=== PATIENT | male | born 1940 | race Caucasian/White ===

== ENCOUNTER 2017-01-22 14:09 | Observation (INO) | payer MEDICARE ==
[2017-01-22 14:58] LABS: Hematocrit 48 % (42-52); Hemoglobin 15.7 g/dl (14.0-18.0); Mean Corpuscular HGB Conc 33 g/dl (31-36); Mean Corpuscular Hemoglobin 30 pg (27-31); Mean Corpuscular Volume 90 fL (80-94); Mean Platelet Volume 10 um3 (7.4-10.4); Red Blood Count 5.29 10^6/ul (4.0-5.4); Red Cell Distribution Width 15 % (10.5-15); White Blood Count 6.7 10^3/ul (3.5-10.8)
--- NOTE | 2017-01-22 15:09 | RAD ---
INDICATION: Chest pain COMPARISON: January 13, 2014 TECHNIQUE: An AP portable view obtained at 1510 hours is submitted. FINDINGS: Bones/Soft Tissues: There are no acute bony findings. Cardiomediastinal: The cardiomediastinal silhouette is normal. Lungs: There are no infiltrates. Pleura: There are no pleural effusions. Other: None IMPRESSION: NO ACTIVE DISEASE.
[2017-01-22 15:12] LABS: Troponin I 0.01 ng/mL (<0.04)
[2017-01-22 15:14] LABS: Albumin 3.8 g/dL (3.2-5.2); BUN/Creatinine Ratio 14.7 (8-20); Calcium 9.3 mg/dL (8.6-10.3); EGFR African American 98.6 (>60); EGFR Non-African American 76.7 (>60); Globulin 3.1 g/dL (2-4); Potassium 3.9 mmol/L (3.5-5.0); Total Protein 6.9 g/dL (6.4-8.9)
[2017-01-22] MEDS ORDERED: Nitroglycerin TAB 0.4 MG* 0.4 MG TAB ONE ×2 (15:56→15:57)
[2017-01-22] MEDS ORDERED: Nitroglycerin TAB 0.4 MG* 0.4 MG TAB SL ONE (15:59)
[2017-01-22] MEDS ORDERED: Omeprazole CAP* 20 MG PO PRN (16:13)
[2017-01-22] MEDS ORDERED: Zolpidem TAB* 10 MG PO PRN (16:13)
[2017-01-22] MEDS ORDERED: Diphenoxylat/Atrop 2.5-0.025M* 1 TAB PO PRN (16:13)
[2017-01-22] MEDS ORDERED: Acetaminophen TAB* 325 MG PO PRN (16:15)
--- NOTE | 2017-01-22 18:33 | ED ---
Kevin Myers Erika, scribed for Beau Lazar MD on 01/22/17 at 1532 . HPI Chest Pain - HPI Summary HPI Summary: Patient is a 76-year-old male presenting to the ED with a CC of intermittent chest pain starting this morning. He reports that he was at a library looking at books when the pain first began. He describes the pain as sharp, stabbing, and a pressure to the mid-sternal chest. 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 Pain does not seem to be brought on by anything, including movement and breathing. Patient notes some mild diaphoresis with symptoms. He denies palpitations, SOB, nausea, and abdominal pain. Pt was given 324 mg ASA en route. Patient denies similar symptoms in the past, and denies known history of PVCs. Hx HTN, celiac disease, GERD. PSHx cholecystectomy, prostatectomy s/p prostate cancer. Denies Hx CAD, asthma. Patient is followed by Dr. Dominguez. 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 Negative: Shortness of Breath, Nausea, Palpitations, Abdominal Pain - Additional Pertinent History Primary Care Physician: [id number] - Allergy/Home Medications Allergies/Adverse Reactions: Allergies Allergy/AdvReac Type Severity Reaction Status Date / Time Fenoprofen [From Nalfon] Allergy Intermediate Diarrhea Verified 01/22/17 14:58 Levofloxacin [From Levaquin] Allergy Intermediate Rash Verified 01/22/17 14:58 Penicillins Allergy Intermediate Hives Verified 01/22/17 14:58 ivp dye Allergy Severe Rash And Uncoded 01/22/17 14:58 Itching Home Medications: Home Medications amLODIPine TAB* [Norvasc 5 mg TAB*] 2.5 mg PO DAILY 01/22/17 [History Confirmed 01/22/17] PMH/Surg Hx/FS Hx/Imm Hx Endocrine/Hematology History: Denies: Hx Diabetes Cardiovascular History: Reports: Hx Angina, Hx Hypertension, Hx Rheumatic Fever - childhood Denies: Hx Coronary Artery Disease, Hx Hypercholesterolemia, Hx Myocardial Infarction, Hx Valvular Heart Disease Respiratory History: Reports: Hx Pneumonia - 1997 Denies: Hx Asthma, Hx Chronic Obstructive Pulmonary Disease (COPD) GI History: Reports: Hx Gastroesophageal Reflux Disease, Hx Hiatal Hernia History: Reports: Other Problems/Disorders - radical prostectomy 2001, Prostate Cx Musculoskeletal History: Reports: Hx Arthritis - osteo Sensory History: Reports: Hx Contacts or Glasses, Hx Hearing Aid - right side only Opthamlomology History: Reports: Hx Contacts or Glasses - Cancer History Cancer Type, Location and Year: Squamous cell 2010, 2011, Prostate Cx 2010, 2001 - Surgical History Surgery Procedure, Year, and Place: Repair trimalleolar Fx 1997, Radical Prostectomy 2001, Tonsilectomy 194, [place] 1979, Bladder polypectomy, R knee arthroplasty 2007, Mohs Sx 2011, Hx Anesthesia Reactions: No - Immunization History Date of Tetanus Vaccine: 04/21 Date of Influenza Vaccine: 06/26 Infectious Disease History: Denies: Traveled Outside the [place] in Last 30 Days - Family History Known Family History: Positive: Cardiac Disease Negative: Diabetes - Social History Occupation: Retired Lives: With Family Alcohol Use: Rare Substance Use Type: Reports: None Hx Tobacco Use: Yes Smoking Status (MU): Former Smoker Amount Used/How Often: 1/2 pack a day Length of Time of Smoking/Using Tobacco: 10 years Have You Smoked in the Last Year: No Review of Systems Positive: Skin Diaphoresis Positive: Chest Pain. Negative: Palpitations Negative: Shortness Of Breath Negative: Abdominal Pain, Nausea All Other Systems Reviewed And Are Negative: Yes Physical Exam Triage Information Reviewed: Yes Vital Signs On Initial Exam: Initial Vitals Temp Pulse Resp BP Pulse Ox 97.3 F 64 14 146/92 98 01/22/17 14:10 01/22/17 14:10 01/22/17 14:10 01/22/17 14:10 01/22/17 14:10 Vital Signs Reviewed: Yes Appearance: Positive: Well-Appearing, No Pain Distress, Obese Skin: Positive: Warm, Skin Color Reflects Adequate Perfusion, Dry Head/Face: Positive: Normal Head/Face Inspection Eyes: Positive: Normal ENT: Positive: Normal ENT inspection Neck: Positive: Supple, Nontender Respiratory/Lung Sounds: Positive: Clear to Auscultation, Breath Sounds Present Cardiovascular: Positive: Other - heart rate had extra beats with pauses Abdomen Description: Positive: Nontender, Soft Bowel Sounds: Positive: Present Musculoskeletal: Positive: Normal Neurological: Positive: Normal Psychiatric: Positive: Affect/Mood Appropriate Diagnostics - Vital Signs Vital Signs Temp Pulse Resp BP Pulse Ox 01/22/17 14:10 97.3 F 64 14 146/92 98 - Laboratory Lab Results: Lab Results 01/22/17 01/22/17 01/22/17 Range/Units 14:26 14:26 14:26 WBC 6.7 (3.5-10.8) 10^3/ul RBC 5.29 (4.0-5.4) 10^6/ul Hgb 15.7 (14.0-18.0) g/dl Hct 48 (42-52) % MCV 90 (80-94) fL MCH 30 (27-31) pg MCHC 33 (31-36) g/dl RDW 15 (10.5-15) % Plt Count 204 (150-450) 10^3/ul MPV 10 (7.4-10.4) um3 Neut % (Auto) 70.3 (38-83) % Lymph % (Auto) 20.9 L (25-47) % [place] % (Auto) 7.3 (1-9) % Eos % (Auto) 0.9 (0-6) % Baso % (Auto) 0.6 (0-2) % Absolute Neuts (auto) 4.7 (1.5-7.7) 10^3/ul Absolute Lymphs (auto) 1.4 (1.0-4.8) 10^3/ul Absolute Monos (auto) 0.5 (0-0.8) 10^3/ul Absolute Eos (auto) 0.1 (0-0.6) 10^3/ul Absolute Basos (auto) 0 (0-0.2) 10^3/ul Absolute Nucleated RBC 0.01 10^3/ul Nucleated RBC % 0.1 Sodium 138 (133-145) mmol/L Potassium 3.9 (3.5-5.0) mmol/L Chloride 106 (101-111) mmol/L Carbon Dioxide 26 (22-32) mmol/L Anion Gap 6 (2-11) mmol/L BUN 14 (6-24) mg/dL Creatinine 0.95 (0.67-1.17) mg/dL Est GFR ( Amer) 98.6 (>60) Est GFR (Non-Af Amer) 76.7 (>60) BUN/Creatinine Ratio 14.7 (8-20) Glucose 104 H (70-100) mg/dL Lactic Acid 1.9 (0.5-2.0) mmol/L Calcium 9.3 (8.6-10.3) mg/dL Total Bilirubin 1.00 (0.2-1.0) mg/dL AST 32 (13-39) U/L ALT 27 (7-52) U/L Alkaline Phosphatase 46 (34-104) U/L Troponin I 0.01 (<0.04) ng/mL Total Protein 6.9 (6.4-8.9) g/dL Albumin 3.8 (3.2-5.2) g/dL Globulin 3.1 (2-4) g/dL Albumin/Globulin Ratio 1.2 (1-3) Result Diagrams: 01/22/17 14:26 01/22/17 14:26 Lab Statement: Any lab studies that have been ordered have been reviewed, and results considered in the medical decision making process. - Radiology CXR Radiology Interpretation Completed By: Radiologist - IMPRESSION: NO ACTIVE DISEASE. - EKG 14:20 Cardiac Rate: NL - at 68 bpm EKG Rhythm: Sinus Rhythm Ectopy: PVCs 14:21 Cardiac Rate: NL - at 68 bpm EKG Rhythm: Sinus Rhythm Ectopy: PVCs 15:59 Cardiac Rate: NL - at 71 bpm EKG Rhythm: Sinus Rhythm Ectopy: PVCs Re-Evaluation - Re-Evaluation First Eval Re-Evaluation Time: 15:30 Comment: Discussed need for admission Chest Pain Course/Dx - Course Course Of Treatment: Mr. Locke presented to the ED with a C/O chest pain that was intermittent all afternoon. His initial troponin was negative as was his ecg but his EDACS is 25 and I think he needs to come in a nd get stressed. His CP is almost completely gone when I see him. - Diagnoses Provider Diagnoses: Chest pain - Provider Notifications Discussed Care Of Patient With: Dr. Ruggiero (hospitalist) at 15:32 - agrees to admit Discharge - Discharge Plan Condition: Stable Disposition: ADMITTED TO [facility] The documentation as recorded by the Kevin fisher Erika accurately reflects the service I personally performed and the decisions made by me, Beau Lazar MD.
[2017-01-22 19:46] LABS: Urine Bilirubin Negative (Negative); Urine Glucose Negative (Negative); Urine Nitrite Negative (Negative)
[2017-01-22] MEDS: Heparin VIAL(*) 5000 UNITS/ML VIAL (FIVE THOUSAND) SUBCUT SCH (21:23)
--- NOTE | 2017-01-23 00:17 | HP ---
HISTORY AND PHYSICAL: DATE OF ADMISSION: 01/22/17 PROVIDER: Adan Ivan NP ATTENDING PHYSICIAN: Coco Julien DO *(report dictated by Adan Ivan NP) PRIMARY CARE PROVIDER: Joaquin Dominguez MD CHIEF COMPLAINT: Chest pain. HISTORY OF PRESENT ILLNESS: Mr. Locke is a 76-year-old male with a past medical history of hypertension, GERD, celiac disease, and distant history of tobacco abuse who presented to the emergency department today with report of acute onset of chest pain starting at 10 a.m. this morning. Mr. Locke reports that he was in the library when he had acute onset of chest pain in his midsternal area radiating to his right chest wall reporting accompanied mild diaphoresis. The patient reports the pain to be sharp, stabbing, and pressure like. He has reported intermittent episodes of chest pain lasting 1 to 2 minutes throughout the day and he came to the emergency department for further evaluation. The patient reports that it seems to happen at rest or with exertion. In the emergency department, he did have an episode of chest pain in which he was given a sublingual nitro and he does state that it mildly subsided. In the emergency department, the patient's initial troponin is 0.01 and EKG showing sinus rhythm with a rate of 68 with no acute ischemic changes noted. The patient denies any accompanying nausea or shortness of breath during these episodes. Denies history of coronary artery disease in the past. The patient denies any recent fevers, chills, or other illnesses and reports that he has been in "fairly good health." No fever, chills, shortness of breath, or cough. Denies any lower extremity swelling or orthopnea. PAST MEDICAL HISTORY: 1. Prostate cancer, status post prostatectomy. 2. History of skin cancer. 3. GERD. 4. Hypertension. 5. Celiac disease. 6. Insomnia. 7. No history of frequent PVCs. PAST SURGICAL HISTORY: 1. Status post right knee arthroplasty. 2. Left total shoulder replacement. 3. Cholecystectomy. 4. Tonsillectomy. 5. Prostatectomy. HOME MEDICATIONS: 1. Amlodipine 2.5 mg p.o. daily. 2. Omeprazole 20 mg p.o. daily p.r.n. 3. Lomotil 1 tab p.o. 4 times a day p.r.n. 4. Ambien 10 mg p.o. at bedtime p.r.n. 5. Valsartan 160 mg p.o. q.a.m. 6. Multivitamin 1 cap p.o. daily. ALLERGIES: FENOPROFEN causes diarrhea. LEVOFLOXACIN causes rash. PENICILLIN causes hives. IVP DYE causes rash and itching. FAMILY HISTORY: The patient's father had a history of congestive heart failure. SOCIAL HISTORY: The patient reports history of tobacco abuse, quitting 35 years ago and smoked for a total of 15 years, 1 pack a day. Rare alcohol use. The patient lives at home with his , Deedee, who is his healthcare proxy. He has no children. REVIEW OF SYSTEMS: A 14-point review of systems was performed. All the pertinent positives and negatives are mentioned in the history of present illness. All the remaining systems are negative. PHYSICAL EXAMINATION GENERAL APPEARANCE: A 76-year-old well-developed male, who appears fairly healthy at his baseline. He is alert and oriented x3. He is sitting up in the emergency department stretcher, in no acute distress. VITAL SIGNS: Temperature 98.1, heart rate 63, respirations 16, O2 sat 100% on room air, and blood pressure 123/72. HEENT: Head is normocephalic, atraumatic. Pupils are reactive to light. Oropharynx is clear. Moist mucous membranes. Good dentition. NECK: Supple. No cervical or supraclavicular lymphadenopathy. RESPIRATORY: Lungs are clear to auscultation bilaterally. Good aeration throughout. No accessory muscle use. CARDIAC: S1, S2. No murmurs, rubs, or gallops appreciated. Trace lower extremity edema noted bilaterally; 1+ DP pulses bilaterally. ABDOMEN: Soft, nontender, and nondistended. Normal bowel sounds positive x4. MUSCULOSKELETAL: Strength is 5/5 throughout. Full range of motion in all extremities. No clubbing or cyanosis is noted. SKIN: Warm, pink, dry. No rashes, lesions, or open wounds noted. NEURO: Grossly intact. Moves all extremities equally. Sensation to lower extremities is intact to light touch. PSYCH: Alert and oriented x3. Appropriate to situation. DIAGNOSTIC STUDIES/LAB DATA: Sodium 138, potassium 3.9, chloride 106, carbon dioxide 26, anion gap 6, BUN 14, creatinine 0.95, glucose 104, lactic acid 1.9, calcium 9.3. Total bilirubin 1.00, AST 32, ALT 27, alkaline phosphatase 46. Troponin 0.01. Total protein 6.9, albumin 3.8. WBC 6.7, RBC 5.29, HGB 15.7, HCT 48, MCV 90, MCH 30, MCHC 33, RDW 15, and platelet count 204. Chest x-ray, impression: "No active disease." EKG sinus rhythm with a rate of 68 with noted ventricular premature complexes. In comparison to prior EKG from 2014 and 2016, there are no acute ischemic changes noted. ASSESSMENT AND PLAN: Mr. Locke is a 76-year-old male with a past medical history of hypertension, distant tobacco abuse, and gastroesophageal reflux disease who presented to the emergency department today with report of acute onset of chest pain. 1. Chest pain: Admit the patient to the hospitalist service for monitoring for acute coronary syndrome. The patient did have an episode of chest pain in the emergency department that was relieved by nitro. Initial troponin is negative at 0.01. Plan to monitor the patient on telemetry, trend troponins with EKGs, and plan for a cardiac nuclear exercise stress test in the morning. The patient did receive an aspirin in the emergency department. We will continue aspirin 81 mg p.o. daily. The patient's MIGUEL A score is 2 placing him at 8% risk. 2. Hypertension: Controlled on his home medications. Continue amlodipine and valsartan. 3. Gastroesophageal reflux disease: Per the patient, he reports that his reflux is well controlled. However, it is possible that his symptoms could be related to gastroesophageal reflux disease symptoms. Continue omeprazole. 4. Celiac disease: Gluten-free diet. 5. DVT prophylaxis: Heparin subcu. 6. Code status: Full code. The patient's is the healthcare proxy. TIME SPENT: Approximately 60 minutes were spent on this admission. ADAN IVAN NP CC: Dr. Dominguez* [id number]/[facility] #: [id number] MARIO
[2017-01-23 04:57] LABS: Hematocrit 43 % (42-52); Hemoglobin 14.4 g/dl (14.0-18.0); Mean Corpuscular HGB Conc 34 g/dl (31-36); Mean Corpuscular Hemoglobin 30 pg (27-31); Mean Corpuscular Volume 90 fL (80-94); Mean Platelet Volume 9 um3 (7.4-10.4); Red Blood Count 4.78 10^6/ul (4.0-5.4); Red Cell Distribution Width 15 % (10.5-15); White Blood Count 6.7 10^3/ul (3.5-10.8)
[2017-01-23] MEDS: Heparin VIAL(*) 5000 UNITS/ML VIAL (FIVE THOUSAND) SUBCUT SCH ×2 (05:08→14:20)
[2017-01-23 05:10] LABS: BUN/Creatinine Ratio 16.7 (8-20); Calcium 8.6 mg/dL (8.6-10.3); EGFR African American 113.7 (>60); EGFR Non-African American 88.4 (>60); Potassium 3.7 mmol/L (3.5-5.0)
[2017-01-23] MEDS ORDERED: Vitamin THERAPEUTIC TAB PO SCH (09:00)
[2017-01-23] MEDS ORDERED: Aspirin Low Dose CHEW TAB* 81 MG PO SCH (09:00)
[2017-01-23] MEDS ORDERED: Valsartan TAB* 160 MG PO SCH (09:00)
[2017-01-23] MEDS ORDERED: amLODIPine TAB* 5 MG PO SCH (09:00)
--- NOTE | 2017-01-23 11:56 | RAD ---
Edited for charges. INDICATION: Chest pain, hypertension. COMPARISON: January 14, 2014 TECHNIQUE: 10.830 mCi of Tc-99m Myoview were administered IV. SPECT images of the heart were obtained. Later on the same day under the direction of Dr. Stokes, an exercise stress test was performed. The patient achieved a peak heart rate of 158 bpm, 111 % of the age- predicted maximum. Subsequently, the patient was given an IV injection of 25.320 mCi Tc- 99m Myoview. SPECT images of the heart were obtained and a gated wall motion study was performed. FINDINGS: Gated wall motion images were obtained at stress and demonstrate wall motion to be within normal limits. The calculated left ventricular ejection fraction is 70 % at stress. Estimated LEFT ventricular end diastolic volume is 62 mL. TID 0.9. Diaphragmatic attenuation noted. Based on review of the attenuation corrected and non corrected images the distribution of radiopharmaceutical within the myocardium on the stress and rest images is within normal limits. No fixed or reversible regions of hypoperfusion evident. IMPRESSION: 1. No evidence for stress induced myocardial ischemia or presence of an infarct. 2. Normal left ventricular wall motion and ejection fraction. ASSESSMENT: LOW RISK Based on imaging criteria from ACC/AHA 2002 Guideline Update for the Management of Patients With Chronic Stable Angina Table 23. Noninvasive Risk Stratification. MTDD
[2017-01-23 13:45] VITALS: BP 128/62
--- NOTE | 2017-01-24 10:12 | TRS ---
DISCHARGE SUMMARY: DATE OF ADMISSION: 01/22/17 DATE OF DISCHARGE: 01/23/17 HOSPITAL STATUS: Observation. PROVIDER: Adan Ivan NP ATTENDING PHYSICIAN: DO Lalo Hickey(report dictated by Adan Ivan NP) PRIMARY CARE PROVIDER: Joaquin Dominguez MD PRIMARY DIAGNOSES: Chest pain, unknown etiology, acute coronary syndrome ruled out. SECONDARY DIAGNOSES: 1. Gastroesophageal reflux disease. 2. Hypertension. 3. Insomnia. 4. History of frequent premature ventricular contractions. 5. Celiac disease. HISTORY OF PRESENT ILLNESS AND HOSPITAL COURSE: Please see history and physical by this author for full admission details, but in summary, this is a 76 -year-old male with a past medical history of hypertension, GERD, celiac disease , and distant history of tobacco abuse who presented to the emergency department on 01/22/17 with report of acute onset of chest pain, starting approximately 10 a.m. yesterday morning. Mr. Locke reports that he was in the library when he had acute onset of chest pain in his midsternal area radiating to his right chest wall with accompanied mild diaphoresis. He reported the pain to be sharp, stabbing, like pressure. He reported intermittent episodes lasting 1 to 2 minutes throughout the day. He reported they would happen at rest and with exertion and nothing made it better or worse. On evaluation in the emergency department, the patient's troponin was 0.01 and his EKG showed sinus rhythm with a rate of 68 with no ventricular premature complexes with no acute ischemic changes noted from prior EKGs. The patient was admitted to the hospitalist service and monitored on telemetry. He had no noted arrhythmias. No further chest pain. He had 4 troponins, all of which were 0.01. The patient's other labs were unremarkable. He underwent a cardiac nuclear exercise stress test this morning, which placed him at low risk showing, 1. "No evidence for stress-induced myocardial ischemia or presence of an infarct. 2. Normal left ventricular wall motion and ejection fraction." The patient has done well throughout his hospitalization with no further episodes of chest pain. The etiology behind his chest pain is unclear. He does report that he did yardwork the day prior to coming in; however, he has no reproducible musculoskeletal pain, but possibly he had some muscle spasms or this was secondary to GERD-like symptoms or esophageal spasms. However, the patient has been chest pain free. He has had a low-risk stress test with negative cardiac enzymes and no EKG changes. The patient is stable for discharge to home. DISCHARGED MEDICATIONS: 1. Amlodipine 2.5 mg p.o. daily. 2. Prilosec 20 mg p.o. daily p.r.n. 3. Lomotil 1 tab p.o. q.i.d. p.r.n. 4. Ambien 10 mg p.o. at bedtime. 5. Valsartan 160 mg p.o. q.a.m. 6. Multivitamin 1 cap p.o. daily. DISCHARGE PLAN: The patient is stable for discharge to home. Next month follow up with Dr. Joaquin Dominguez on 01/28/17 at 11:20 a.m. TIME SPENT: Approximately 60 minutes was spent on this discharge. ADAN IVAN NP CC: Joaquin Dominguez MD* [id number]/[facility] #: [id number] MTDD
== END 2017-01-23 15:41 | disposition home or self-care (01) ==
LOC: ED 14:09 → MEDTELE 15:37 → UNDODISOB 01-23 15:41
PROVIDERS: ADMIT Internal Medicine; ATTEND Hospitalist
DX: R07.9 Chest pain, unspecified (principal); I10 Essential (primary) hypertension; K21.9 Gastro-esophageal reflux disease without esophagitis; K90.0 Celiac disease; G47.00 Insomnia, unspecified; I20.9 Angina pectoris, unspecified; I49.3 Ventricular premature depolarization; Z85.46 Personal history of malignant neoplasm of prostate; Z79.899 Other long term (current) drug therapy; Z87.891 Personal history of nicotine dependence; Z88.0 Allergy status to penicillin; Z88.1 Allergy status to other antibiotic agents; Z88.8 Allergy status to other drugs, medicaments and biological substances
CPT/HCPCS: 36415; 71010; 78452; 80048; 80053; 81003; 83605; 84484; 85025; 93005; 93017; 96372; 99285; A9270-GY; A9502; G0378; J1644

== ENCOUNTER 2017-04-22 14:40 | Emergency (ER) | payer MEDICARE ==
[2017-04-22] MEDS ORDERED: Tetan/Diph/Pertus SYR(Tdap)* 0.5 ML SYR(BOOSTRIX) use SYR IM ONE (15:48)
[2017-04-22 16:11] VITALS: BP 142/75
--- NOTE | 2017-04-22 23:47 | ED ---
Laceration/Wound HPI - HPI Summary HPI Summary: Small 2cm laceration to the right knee with moderate amount of bleeding from pruning efrain 2 hours ago. He attempted to place bandaids without relief of bleeding and applying pressure with no improvement. Denies blood thinners but took motrin this morning. He is otherwise healthy. Last tetanus 8 years ago. He has no other complaints at this time. - History of Current Complaint Stated Complaint: KNEE LACERATION Time Seen by Provider: 04/22/17 14:45 Hx Obtained From: Patient Mechanism of Injury: Sharp/Blunt Trauma Onset/Duration: Sudden Onset Aggravating: Nothing Alleviating: Nothing Timing: Constant Onset Severity: Mild Current Severity: Mild Pain Intensity: 0 Pain Scale Used: 0-10 Numeric Associated Signs & Symptoms: Negative Related Hx: Other - motrin this morning - Additional Pertinent History Primary Care Physician: [id number] - Allergy/Home Medications Allergies/Adverse Reactions: Allergies Allergy/AdvReac Type Severity Reaction Status Date / Time Fenoprofen [From Nalfon] Allergy Intermediate Diarrhea Verified 01/22/17 14:58 Levofloxacin [From Levaquin] Allergy Intermediate Rash Verified 01/22/17 14:58 Penicillins Allergy Intermediate Hives Verified 01/22/17 14:58 ivp dye Allergy Severe Rash And Uncoded 01/22/17 14:58 Itching PMH/Surg Hx/FS Hx/Imm Hx Previously Healthy: Yes Endocrine/Hematology History: Denies: Hx Diabetes Cardiovascular History: Reports: Hx Angina, Hx Hypertension, Hx Rheumatic Fever - childhood Denies: Hx Coronary Artery Disease, Hx Hypercholesterolemia, Hx Myocardial Infarction, Hx Valvular Heart Disease Respiratory History: Reports: Hx Pneumonia - 1997 Denies: Hx Asthma, Hx Chronic Obstructive Pulmonary Disease (COPD) GI History: Reports: Hx Gastroesophageal Reflux Disease, Hx Hiatal Hernia, Other GI Disorders - celiac disease History: Reports: Other Problems/Disorders - radical prostectomy 2001, Prostate Cx Musculoskeletal History: Reports: Hx Arthritis - osteo Sensory History: Reports: Hx Contacts or Glasses, Hx Hearing Aid - right side only Opthamlomology History: Reports: Hx Contacts or Glasses - Cancer History Cancer Type, Location and Year: Squamous cell 2010, 2011, Prostate Cx 2001 - Surgical History Surgery Procedure, Year, and Place: Repair trimalleolar Fx 1997, Radical Prostectomy 2001, Tonsilectomy 194, [place] 1979, Bladder polypectomy, R knee arthroplasty 2008, Mohs Sx 2012, Hx Anesthesia Reactions: No - Immunization History Date of Tetanus Vaccine: 04/21 Date of Influenza Vaccine: 06/26 Hx Pertussis Vaccination: No Immunizations Up to Date: Unable to Obtain/Confirm Infectious Disease History: No Infectious Disease History: Denies: Traveled Outside the [place] in Last 30 Days - Family History Known Family History: Positive: Cardiac Disease, Other - CHF Negative: Diabetes - Social History Occupation: Retired Lives: With Family Alcohol Use: Rare Alcohol Amount: MAYBE 1-2 DRINKS/YEAR Hx Substance Use: No Substance Use Type: Reports: None Hx Tobacco Use: Yes Smoking Status (MU): Former Smoker Amount Used/How Often: 1/2 pack a day Length of Time of Smoking/Using Tobacco: 10 years Have You Smoked in the Last Year: No Review of Systems Constitutional: Negative Eyes: Negative Cardiovascular: Negative Respiratory: Negative Positive: no symptoms reported, see HPI Skin: Negative - 2cm laceration to lateral side of the right knee All Other Systems Reviewed And Are Negative: Yes Physical Exam Triage Information Reviewed: Yes Vital Signs On Initial Exam: Initial Vitals Temp Pulse Resp BP Pulse Ox 97.6 F 104 20 175/158 97 04/22/17 14:41 04/22/17 14:41 04/22/17 14:41 04/22/17 14:41 04/22/17 14:41 Vital Signs Reviewed: Yes Appearance: Positive: Well-Appearing, Well-Nourished Skin: Positive: Warm, Skin Color Reflects Adequate Perfusion - 2cm laceration to lateral side of the right knee Head/Face: Positive: Normal Head/Face Inspection Eyes: Positive: Normal, MICKEY Neck: Positive: Supple, No Lymphadenopathy Respiratory/Lung Sounds: Positive: Clear to Auscultation, Breath Sounds Present Cardiovascular: Positive: Normal, RRR, Pulses are Symmetrical in both Upper and Lower Extremities Musculoskeletal: Positive: Normal, Strength/ROM Intact Neurological: Positive: Speech Normal Psychiatric: Positive: Normal Procedures - Laceration/Wound Repair 1 Location: lower extremity Description: Linear Betadine Prep?: No Laceration/Wound Explored: clean Layer Closure?: No Sterile Dressing Applied?: No Diagnostics - Vital Signs Vital Signs Temp Pulse Resp BP Pulse Ox 04/22/17 16:11 83 16 142/75 97 04/22/17 15:00 97.6 F 104 20 138/83 97 04/22/17 14:41 97.6 F 104 20 175/158 97 - Laboratory Lab Statement: Any lab studies that have been ordered have been reviewed, and results considered in the medical decision making process. Laceration Repair Course/Dx - Course Course Of Treatment: 2cm laceration to lateral side of the right knee. Timeout obtained. Cleansed wound. Irrigated with 20CC's normal saline. Lidocaine without epi as local anesthetic - 1ml. 4-0 non-absorbable prolene. 2 sutures placed using simple interrupted technique. Patient tolerated well. Cleaned and dressed wound with telfa dressing. NV exam WNL. Sutures out in 5 days. Return precautions given. Patient OK with discharge. - Differential Dx Differental Diagnoses: Abrasion, Laceration, Puncture Wound, Tendon Laceration - Clinical Impression Provider Diagnoses: Laceration of knee Discharge - Discharge Plan Condition: Stable Disposition: HOME Patient Education Materials: Care For Your Stitches (ED) Referrals: Joaquin Dominguez MD [Primary Care Provider] - Additional Instructions: Follow up as needed If you develop redness, streaks of red around the wound, swelling, abnormal drainage or you develop a fever - you need to come back to the ED right away. Suture removal in 5-7 days. Continue to keep covered x 24 hours, then leave open to air.
== END 2017-04-22 16:15 | disposition home or self-care (01) ==
LOC: ED 14:40
DX: S81.011A Laceration without foreign body, right knee, initial encounter (principal); W27.8XXA Contact with other nonpowered hand tool, initial encounter; Y92.9 Unspecified place or not applicable; Z23 Encounter for immunization; Z88.0 Allergy status to penicillin; Z88.8 Allergy status to other drugs, medicaments and biological substances; I10 Essential (primary) hypertension
CPT/HCPCS: 90471; 90715; 99282

== ENCOUNTER 2018-07-18 08:17 | Inpatient (IN) | payer MEDICARE ==
--- NOTE | 2018-07-09 17:16 | HP ---
PREOPERATIVE HISTORY AND PHYSICAL: DATE OF ADMISSION: 07/18/18 PROVIDER: Dr. Eliza Aggarwal. * (DICTATED BY SUDHEER WINKLER) CHIEF COMPLAINT: Left knee pain. HISTORY OF PRESENT ILLNESS: Mr. Locke is a 77-year-old gentleman, who has had bilateral knee pain, left greater than right, and has become chronic. He failed conservative treatment with steroid injections, physical therapy, and activity modification. He is interested in surgical intervention for correction of the problem. PAST MEDICAL HISTORY: Hypertension, osteoarthritis, GERD, prostate cancer, skin cancer, and celiac disease. PAST SURGICAL HISTORY: Cholecystectomy, left ankle ORIF, prostate surgery, left shoulder replacement, right knee arthroscopy, and tonsillectomy. He reports no complications with anesthesia with any of the procedures. CURRENT MEDICATIONS: 1. Losartan potassium 100 mg p.o. q. day. 2. Magnesium oxide 400 mg p.o. q. day. 3. Amlodipine besylate 2.5 mg q. day. 4. Lomotil as needed. 5. Multivitamin daily. 6. Aleve 220 mg as needed. 7. Omeprazole 20 mg p.o. every other day. 8. Lactaid as needed. ALLERGIES: NALFON, LEVAQUIN, PENICILLIN, GLUTEN, LACTOSE, and CONTRAST DYE. FAMILY HISTORY: Positive for heart disease, diabetes, and hypertension on the paternal side, rheumatoid arthritis on his mother's side. SOCIAL HISTORY: He lives with his . 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 He denies tobacco or recreational drug use. He drinks 1 to 2 alcoholic beverages per week. He is right-hand dominant. REVIEW OF SYSTEMS: A 14-point review of systems was discussed with the patient. All systems were negative except discussed in the HPI. PHYSICAL EXAMINATION GENERAL: He is a well-developed, well-nourished, pleasant male, in no acute distress at rest. He is alert and oriented x3 with appropriate mood and affect. VITAL SIGNS: The patient is 5 feet 6-1/2 inches, 220 pounds. Blood pressure 138/92, pulse 88, temperature 97.9. HEENT: Normocephalic, atraumatic. Hearing and vision are grossly intact. NECK: His trachea is midline. LUNGS: Clear to auscultation bilaterally. No wheezes, rales, or rhonchi. CARDIOVASCULAR: Regular rate and rhythm. No murmurs, rubs, or gallops appreciated. ABDOMEN: Soft, nondistended, nontender. Normal bowel sounds. EXTREMITIES: Exam of the left lower extremity: Skin is intact. There are no abrasions or open wounds. He has a valgus deformity of 12 degrees. No palpable masses or lymph nodes. He has 5 to 120 degrees of flexion with pain and patellofemoral crepitus. He has tenderness along the MCL, medial joint line and lateral joint line. No varus or valgus instability. There is some mild MCL laxity. There is no edema or varicosities distally. He has full sensation and 5/5 strength. His sensation to light touch is intact. He has 2+ dorsalis pedis pulse. GAIT: He ambulates with an antalgic gait favoring his knee. No obvious balance or coordination deficits. DIAGNOSTIC STUDIES: Radiographs of bilateral knees show severe end-stage osteoarthritis of bilateral knees. Left knee is a valgus knee with bone-on- bone contact, tricompartmental joint space narrowing and osteophyte formation with subchondral sclerosis. IMPRESSION: Left knee osteoarthritis. PLAN: The patient is to undergo left total knee arthroplasty by Dr. Aggarwal on . The risks, benefits, and post-operative course were discussed with the patient at length and he would like to proceed. All of his questions were answered to his full satisfaction. He is understanding to call with any problems or concerns. We will otherwise follow up with the patient postoperatively. SUDHEER WINKLER [id number]/[facility] #: [id number] MARIO
[~2018-07-18 08:17] MED LIST: Acetaminophen IV 1GM/100ML * 1,000 MG/100 ML VIAL IVPB ONE; Buffered Lidocaine 0.9% SYRIN* 5 ML/SYR SYRINGE INTRADERM ONE; Dexamethasone IV* 4 MG/ML 1 ML (4 MG) IV SLOW PU ONE; Gabapentin CAP(*) 300 MG PO ONE; Tranexamic Acid 1,000 MG in NS 0.9% 50 ML* (outpatient use) IV SCH; celeCOXIB CAP* 200 MG PO ONE
[2018-07-18] MEDS ORDERED: celeCOXIB CAP* 100 MG ONE (08:38)
[2018-07-18] MEDS ORDERED: Dexamethasone IV* 4 MG/ML 1 ML (4 MG) ONE (08:38)
[2018-07-18] MEDS ORDERED: Gabapentin CAP(*) 300 MG ONE (08:38)
[2018-07-18] MEDS ORDERED: Buffered Lidocaine 0.9% SYRIN* 5 ML/SYR SYRINGE ONE (08:39)
[2018-07-18] MEDS ORDERED: Clindamycin 900 MG/D5W BAG(*) 900 MG/50 ML BAG IVPB ONE (08:39)
[2018-07-18] MEDS ORDERED: Acetaminophen IV 1GM/100ML * 100 ML ONE (09:09)
[2018-07-18] MEDS ORDERED: ROPIVACAINE 5 MG/ML 30 ML BTL (0.5%) ONE (09:57)
[2018-07-18] MEDS ORDERED: fentaNYL* 50 MCG/ML 2 ML VIAL (100 MCG VIAL) ONE (10:00)
[2018-07-18] MEDS ORDERED: Midazolam* 1 MG/ML 5 ML VIAL (5 MG) ONE (10:00)
[2018-07-18] MEDS ORDERED: DiMENhydriNATE IV* 50 MG/ML VIAL IV PUSH PRN (11:13)
[2018-07-18] MEDS ORDERED: fentaNYL* 50 MCG/ML 2 ML VIAL (100 MCG VIAL) IV PRN (11:13)
[2018-07-18] MEDS ORDERED: HYDROmorphone INJ1* 1 MG/ML SYRINGE IV PRN (11:13)
[2018-07-18] MEDS ORDERED: Naloxone* 0.4 MG/ML 1 ML VIAL IV PRN (11:13)
[2018-07-18] MEDS ORDERED: Ondansetron INJ* 2 MG/ML VIAL IV PRN ×2 (11:13→12:49)
[2018-07-18] MEDS ORDERED: Bupivacaine 0.5% SDV PF* 30ML VIAL ONE ×2 (11:16→11:48)
[2018-07-18] MEDS ORDERED: Ondansetron INJ* 2 MG/ML VIAL ONE (11:16)
[2018-07-18] MEDS ORDERED: Propofol* 10 MG/ML 20 ML BTL IV PUSH ONE (11:47)
[2018-07-18] MEDS ORDERED: Cyclobenzaprine TAB* 10 MG PO PRN (12:49)
[2018-07-18] MEDS ORDERED: Ondansetron TAB* 4 MG PO PRN (12:49)
[2018-07-18] MEDS ORDERED: Morphine VIAL* 4 MG/ML VIAL (1 ml vial) IV PRN (12:49)
[2018-07-18] MEDS ORDERED: oxyCODONE/Acetamin 5/325 MG* TAB PO PRN ×2 (12:49)
[2018-07-18] MEDS ORDERED: Polyethylene Glycol 3350* 17 GM PACKET PO PRN (12:49)
[2018-07-18] MEDS ORDERED: diPHENhydraMINE IV* 50 MG/ML 1 ml VIAL (BENADRYL) IV PRN (12:49)
[2018-07-18] MEDS ORDERED: Magnesium Hydroxide LIQ* 30 ML UDC PO PRN (12:49)
[2018-07-18] MEDS ORDERED: Bisacodyl SUPP* 10 MG SUPP PR PRN (12:49)
[2018-07-18] MEDS ORDERED: traMADol TAB* 50 MG PO PRN (12:49)
[2018-07-18] MEDS ORDERED: Zolpidem TAB* 10 MG PO PRN (12:56)
[2018-07-18] MEDS ORDERED: Acetaminophen TAB* 325 MG PO SCH (13:00)
[2018-07-18] MEDS ORDERED: Morphine VIAL* 10 MG/ML 1 ML VIAL ONE ×2 (13:18→15:22)
--- NOTE | 2018-07-18 13:51 | RAD ---
Indication: Postop after LEFT total knee replacement. Comparison: May 12, 2018 Technique: LEFT knee: AP and crosstable lateral views. Report: Total knee prosthesis in place with normal alignment. Negative for periprosthetic fracture. Drain in place at the superior joint recess. Anterior soft tissue edema and subcutaneous emphysema. IMPRESSION: #. Unremarkable immediate postop appearance following LEFT total knee replacement.
[2018-07-18] MEDS ORDERED: Warfarin TAB(*) 6 MG PO ONE (17:00)
[2018-07-18] MEDS: Clindamycin 600 MG IVPREMIX(* 600 MG/50 ML SDV IV SCH (18:19)
[2018-07-18] MEDS: Acetaminophen TAB* 325 MG PO SCH (19:50)
[2018-07-18] MEDS: Magnesium Hydroxide LIQ* 30 ML UDC PO SCH (19:50)
[2018-07-18] MEDS: Docusate CAP* 100 MG PO SCH (19:51)
--- NOTE | 2018-07-18 23:27 | CONS ---
CC: Dr. Joaquin Dominguez; Dr. Eliza Aggarwal CONSULTATION REPORT: DATE OF CONSULT: 07/18/18 PRIMARY CARE PROVIDER: Dr. Joaquin Dominguez. ATTENDING PHYSICIAN: Dr. Coco Julien (dictated by Ce Boo NP). REASON FOR CONSULT: Co-medical management of patient with a history of hypertension, osteoarthritis, GERD, prostate cancer, celiac disease, and lactose intolerance. HISTORY OF PRESENT ILLNESS: Mr. Locke is a 77-year-old male with a past medical history significant for hypertension, osteoarthritis, GERD, prostate cancer, celiac disease with lactose intolerance, who presented to the hospital for an elective left total knee arthroplasty with Dr. Eliza Aggarwal. The patient states that prior to his procedure today, he has been in his usual state of health. He denies any fever, chills, chest pain, shortness of breath, nausea, vomiting, or diarrhea. Postoperatively, he states he is feeling well, but is starting to develop left knee pain. He is noted to be slightly hypertensive today, he states he did not take his antihypertensive medications today. He also reports his primary care provider has been following along for hypertension. Hospitalists were asked to assist with co-medical management of this patient during his hospitalization. PAST MEDICAL HISTORY: 1. Hypertension. 2. Osteoarthritis. 3. GERD. 4. Prostate cancer. 5. Skin cancer. 6. Celiac disease. 7. Lactose intolerance. PAST SURGICAL HISTORY: 1. Status post cholecystectomy. 2. Status post left ankle ORIF. 3 Status post prostatectomy. 4. Status post left shoulder replacement. 5. Status post right total knee arthroscopy. 6. Status post tonsillectomy. HOME MEDICATIONS: Include: 1. Losartan 100 mg oral daily. 2. Magnesium oxide 400 mg oral daily. 3. Amlodipine 2.5 mg oral daily. 4. Lomotil 2.5/0.025 mg 1 tablet oral 4 times daily as needed for loose stools. 5. Multivitamin 1 tablet oral daily. 6. Aleve 220 mg oral daily as needed for pain. 7. Omeprazole 20 mg oral every other day. 8. Lactaid 1 tablet oral daily as needed prior to meal for lactose intolerance. ALLERGIES: NALFON, LEVAQUIN, PENICILLIN, GLUTEN, LACTOSE, and CONTRAST DYE. FAMILY HISTORY: The patient's father with a history of congestive heart failure , brother with a history of diabetes mellitus and heart failure, second brother with a history of congestive heart failure and Alzheimer's dementia. A maternal grandfather with a history of coronary artery disease. SOCIAL HISTORY: He lives with his . 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 He denies tobacco or recreational drug use. He drinks 1 to 2 alcoholic beverages a week. His , Christine Locke, will be his surrogate decision maker in the event he is unable to make decisions for himself. REVIEW OF SYSTEMS: I performed an 11-point review of systems. All the pertinent positives and negatives are mentioned in the history of present illness, the remaining review of systems is negative. PHYSICAL EXAM: Vital Signs: Temperature 96.9, heart rate 64, respiratory rate 14, O2 sat 99% on 2 L via nasal cannula, blood pressure 142/84. General Appearance: He is alert, pleasant, appears to be in no acute distress. HEENT: Normocephalic, atraumatic. Pupils are equal and reactive to light. Extraocular movements are intact. Respiratory: There are no accessory muscle use. Lungs are clear to auscultation bilaterally. Cardiovascular: Regular rate and rhythm. S1, S2 present. There are no murmurs, rubs, or gallops heard. Abdomen: Soft, nontender, nondistended. Bowel sounds present x4. Extremities: No lower extremity edema. DP and PT pulses are 2+ and symmetric. Musculoskeletal: There is no clubbing or cyanosis noted. The patient exhibits good strength in all extremities. Neurological: He is alert and oriented x4. Cranial nerves II through XII are grossly intact. Psychologically, he is calm and cooperative. Skin: There are no rashes or abnormalities seen. He has a dressing to his left knee that is clean, dry, and intact. LABORATORY DATA: Preoperative labs from 07/09/18: Sodium 138, potassium 4.5, chloride 106, CO2 27, BUN 16, creatinine 0.86, glucose 88. White blood cell count 5.4, hemoglobin 15.0, hematocrit 45, platelet count 220. IMPRESSION: Mr. Locke is a 77-year-old male with past medical history significant for hypertension, osteoarthritis, GERD, prostate cancer, and celiac disease, who presented to the hospital today for an elective left total knee arthroplasty with Dr. Eliza Aggarwal. The hospitalists will assist with co- medical management of this patient during his hospitalization. ASSESSMENT/PLAN: 1. Osteoarthritis. Status post left total knee arthroplasty, postop day. Management will be per Orthopedic Surgery. We will trend his H and H. He will have a urinary catheter in place until tomorrow morning. He will have PT/OT eval, weightbearing as tolerated. 2. Hypertension. The patient has been slightly hypertensive with systolic blood pressures in the 130s to 140s. He did not take his losartan or amlodipine today. We will follow his blood pressures. If he continues to be hypertensive, his medication should be adjusted or deferred to his primary care provider to adjust after discharge. 3. Gastroesophageal reflux disease. He will be continued on his home omeprazole. 4. History of prostate and skin cancer. He should continue to follow with his primary care provider. 5. Celiac disease. He should continue to follow with his PCP, be on a gluten- free diet. 6. Fluids, electrolytes, and nutrition. Again, he has celiac and should be on a gluten-free diet. 7. Code status. Full code. 8. DVT prophylaxis. He will be Lovenox bridged to warfarin per Orthopedic Surgery. 9. Disposition. Per Orthopedic Surgery. TIME SPENT: Time for this consultation was approximately 50 minutes, greater than half of that was spent with the patient discussing medications, past medical history, the events leading up to his arrival today, and performing a physical examination. Reviewed by ALLI LOPES 07/19/18 [id number]/[facility] #: [id number] MARIO
[2018-07-19] MEDS: Clindamycin 600 MG IVPREMIX(* 600 MG/50 ML SDV IV SCH ×2 (02:04→09:51)
[2018-07-19] MEDS: oxyCODONE TAB* 5 MG TAB PO PRN (04:00)
[2018-07-19] MEDS: Acetaminophen TAB* 325 MG PO SCH ×3 (04:00→19:44)
[2018-07-19 05:35] LABS: Hematocrit 38 % (42-52); Hemoglobin 12.6 g/dl (14.0-18.0); Platelet Count 185 10^3/ul (150-450)
[2018-07-19 05:44] LABS: INR 1.22 (0.77-1.02)
[2018-07-19 06:00] LABS: EGFR Non-African American 90.6 (>60)
[2018-07-19] MEDS: Losartan TAB* 25 MG PO SCH (07:11)
[2018-07-19] MEDS: amLODIPine TAB* 5 MG PO SCH (07:11)
[2018-07-19] MEDS: Docusate CAP* 100 MG PO SCH ×2 (07:11→19:44)
[2018-07-19] MEDS: Magnesium Hydroxide LIQ* 30 ML UDC PO SCH ×2 (07:14→19:26)
--- NOTE | 2018-07-19 08:53 | PN ---
Progress Note - Progress Note Date of Service: 07/19/18 SOAP: Subjective: Pt. is alert, reports pain is well controlled. Would like to go home tomorrow 07/20. Objective: Vital Signs: Temp Pulse Resp BP Pulse Ox 97.5 F 58 16 131/61 97 07/19/18 04:11 07/19/18 04:11 07/19/18 06:11 07/19/18 04:11 07/19/18 04:11 Laboratory Results - last 24 hr 07/19/18 07/19/18 07/19/18 05:02 05:02 05:02 Hgb 12.6 L Hct 38 L Plt Count 185 MPV 9.0 INR (Anticoag Therapy) 1.22 H Sodium 137 Potassium 4.5 Chloride 104 Carbon Dioxide 30 Anion Gap 3 BUN 18 Creatinine 0.82 Est GFR ( Amer) 109.7 Est GFR (Non-Af Amer) 90.6 BUN/Creatinine Ratio 22.0 H Glucose 115 H Calcium 8.3 L LLE - drain removed, tip intact. 300 cc ss drainage. dressing c/d/i. distally nvi. Assessment: 77 yo M pod 1 s/p LTKA Plan: wbat pt/ot lovenox and coumadin plan d/c to home with vns 07/20
[2018-07-19] MEDS ORDERED: Enoxaparin(*) 40 MG/0.4 ML SYR SUBCUT SCH (12:00)
--- NOTE | 2018-07-19 13:13 | PN ---
Subjective Date of Service: 07/19/18 Interval History: Patient seen and examined at bedside. Denies fever, chills, shortness of breath , chest discomfort, N/V/D. Pt states that his pain is well controlled. He has been up and ambulated with physical therapy. Family History: Unchanged from Admission Social History: Unchanged from Admission Past Medical History: Unchanged from Admission Objective Active Medications: Acetaminophen (Tylenol Tab*) 975 mg PO 0400,1200,2000 FANY Amlodipine Besylate (Norvasc Tab*) 2.5 mg PO QAM FANY Bisacodyl (Dulcolax Supp*) 10 mg WA DAILY PRN Reason: constipation Cyclobenzaprine HCl (Flexeril Tab*) 10 mg PO TID PRN Reason: SPASMS Diphenhydramine HCl (Benadryl Iv*) 12.5 mg IV Q6H PRN Reason: PRURITIS Docusate Sodium (Colace Cap*) 100 mg PO BID FANY Enoxaparin Sodium (Lovenox(*)) 40 mg SUBCUT Q24H FANY Lactated Ringer's (Lactated Ringers 1000 Ml Bag*) 1,000 mls @ 125 mls/hr IV PER RATE FANY Lactated Ringer's (Lactated Ringers 1000 Ml Bag*) 1,000 mls @ 100 mls/hr IV PER RATE FANY Lactulose (Lactulose*) 30 ml PO Q6H PRN Reason: constipation Losartan Potassium (Cozaar Tab*) 100 mg PO QAM FANY Magnesium Hydroxide (Milk Of Magnesia Liq*) 30 ml PO BID FANY Magnesium Hydroxide (Milk Of Magnesia Liq*) 30 ml PO Q6H PRN Reason: constipation Morphine Sulfate (Morphine Vial*) 2 mg IV Q2H PRN Reason: PAIN - SEVERE Omeprazole (Prilosec Cap*) 20 mg PO EVERY OTHER DAY@0730 FANY Ondansetron HCl (Zofran Inj*) 4 mg IV Q6H PRN Reason: nausea Ondansetron HCl (Zofran Tab*) 4 mg PO Q6H PRN Reason: NAUSEA Oxycodone HCl (Roxycodone Tab*) 10 mg PO Q4H PRN Reason: SEVERE PAIN Oxycodone/Acetaminophen (Percocet 5/325 Tab*) 1 tab PO Q4H PRN Reason: PAIN Oxycodone/Acetaminophen (Percocet 5/325 Tab*) 2 tab PO Q4H PRN Reason: PAIN Polyethylene Glycol/Electrolytes (Miralax*) 17 gm PO DAILY PRN Reason: Constipation Tramadol HCl (Ultram*) 50 mg PO Q6H PRN Reason: PAIN Warfarin Sodium (Coumadin Tab(*)) 6 mg PO ONCE@1700 ONE; Protocol Stop: 07/19/18 17:01 Zolpidem Tartrate (Ambien Tab*) 10 mg PO BEDTIME PRN Reason: INSOMNIA Vital Signs - 8 hr 07/19/18 07/19/18 07/19/18 06:11 07:11 08:00 Temperature 98.0 F Pulse Rate 74 Respiratory 16 16 16 Rate Blood Pressure 120/61 (mmHg) O2 Sat by Pulse 95 95 Oximetry Oxygen Devices in Use Now: None Appearance: NAD, sitting up on the side of the bed Ears/Nose/Mouth/Throat: Mucous Membranes Moist Respiratory: Symmetrical Chest Expansion and Respiratory Effort, Clear to Auscultation Cardiovascular: NL Sounds; No Murmurs; No JVD, RRR Extremities: - - Trace left LE edema Skin: No Rash or Ulcers, - - Dressing to left knee cleam, dry and intact Neurological: Alert and Oriented x 3, NL Muscle Strength and Tone Lines/Tubes/Other Access: Clean, Dry and Intact Peripheral IV - site benign Nutrition: Taking PO's Result Diagrams: 07/19/18 05:02 07/19/18 05:02 Assess/Plan/Problems-Billing Assessment: Ms. Locke is a 77 yo male with PMH significant for HTN, osteoarthritis, GERD , prostate CA and celiac disease who presented to the hospital for an elective left total knee arthroplasy. - Patient Problems (1) Status post total left knee replacement Code(s): Z96.652 - PRESENCE OF LEFT ARTIFICIAL KNEE JOINT SNOMED Code(s): 7356279829527 Comment: - POD #1, management per orthopedics - HH stable - Continue PT, pain management and bowel regimen (2) Benign essential hypertension Code(s): I10 - ESSENTIAL (PRIMARY) HYPERTENSION SNOMED Code(s): 5155078 Comment: - Normotensive, SBP 110-130's - Continue losartan and amlodipine (3) GERD (gastroesophageal reflux disease) Code(s): K21.9 - GASTRO-ESOPHAGEAL REFLUX DISEASE WITHOUT ESOPHAGITIS SNOMED Code(s): 480043979 Comment: - Continue omeprazole (4) Celiac disease Code(s): K90.0 - CELIAC DISEASE SNOMED Code(s): 001407183 (5) DVT prophylaxis Code(s): RIN8372 - SNOMED Code(s): 107482711 Comment: - Lovenox bridge to warfarin (6) Patient is full code Code(s): Z78.9 - OTHER SPECIFIED HEALTH STATUS SNOMED Code(s): 431703797 Status and Disposition: Inpatient. Disposition per Orthopedics.
--- NOTE | 2018-07-19 14:06 | OP ---
OPERATIVE NOTE: DATE OF OPERATION: DATE OF : 36 SURGEON: Eliza Aggarwal MD STOCK HANDLER FLOORPERSON: SUDHEER Brown Ms. did help throughout the procedure with preparation of the leg, wound retraction, and man ipulation of the knee and wound closure. ANESTHESIOLOGIST: Dr. Fletcher. ANESTHESIA: Spinal. PRE-OP DIAGNOSIS: Severe end-stage degenerative osteoarthritis of the left knee joint. POST-OP DIAGNOSIS: Severe end-stage degenerative osteoarthritis of the left knee joint. OPERATIVE PROCEDURE: Left total knee arthroplasty. TOURNIQUET TIME: 45 minutes. COMPLICATIONS: None. ESTIMATED BLOOD LOSS: 300 cc. SPECIMEN: Bone and cartilage from the left knee joint, sent to Pathology. HARDWARE USED: This is cemented [employer] total knee arthroplasty hardware. Two packages of S implex bone cement. For the femur, a left size 7 posterior stabilized Legion femoral component. For the tibia, a size 6 left Suzanne II tibial baseplate. For the insert, a 9-mm posterior stabilized a rticular insert size 5/6; and for the patella, a 38 mm 3-peg all-poly patella. BRIEF HISTORY/INDICATIONS: Mr. Locke is a 77-year-old gentleman with years of increasingly severe left knee pain and valgus deformity. He failed conservative treatment with anti-inflammatories, issa n medications, intra-articular injections, and physical therapy. Due to continued pain and decreased quality of life, he elected to undergo left total knee arthroplasty. Informed consent was obtained from the patient. He understood the risks of surgery included but were not limited to bleeding, infe ction, damage to nearby structures, continued pain, need for further surgery, intraoperative fracture , nerve palsy, hardware failure or loosening, knee stiffness, loss of motion, stroke, heart attack, b lood clot, and . He wished to proceed. INTRAOPERATIVE FINDINGS: Intraoperatively, the patient is noted to have a preop valgus deformity of 10 degrees and flexion contracture of 15 degrees. These were both corrected to anatomic and by the e nd of the case, noted a complete thickness loss of cartilage in the lateral and patellofemoral compar tment. DESCRIPTION OF PROCEDURE: Mr. Locke was identified in the preanesthesia unit. His left lower extr emity was marked as the correct operative side. Informed consent was signed and placed in the chart. The patient was taken to the operating room and placed under spinal anesthesia. A Ponce catheter w as placed. Tourniquet was placed on the left thigh. Left lower extremity was prepped and draped in the usual sterile fashion. Preop time-out was made to correctly identify the patient's side and site . Appropriate perioperative antibiotics were given within 1 hour of incision. Tourniquet was inflated and total tourniquet time for this procedure was 45 minutes. A midline incis ion was made with a 10-blade and carried down sharply to the extensor mechanism. A new 10-blade was used to make a standard medial parapatellar arthrotomy. The patella was subluxed laterally. Electro cautery was used to subperiosteally elevate soft tissue off the superomedial tibia to the mid sagitta l plane. Knee was flexed up. The anterior horn of the lateral meniscus and ACL were sharply release d. A drill was used to enter the distal femur. Intramedullary distal femoral cutting guide was pinne d on the distal femur. Oscillating saw was used to make the distal femoral cut. External rotation gu vandana was placed on the distal femur. Distal femur was sized to a size 7. Size 7 multi- cutting jig w as pinned on the distal femur. Oscillating saw was used to make the appropriate 4 chamfer cuts. The PCL was completely released. The tibia was subluxed anteriorly. Extramedullary tibial cutting gu vandana was pinned on the proximal tibia. Oscillating saw was used to make the proximal tibial cut perpe ndicular to the mechanical access of the tibia. The bone was carefully removed. The knee was ayala t out into full extension. A spacer block had excellent fit with the knee in full extension. Medial and lateral ligaments were well balanced. Flexion and extension gaps were well balanced. The knee w as flexed up. Lamina fur coat sewer was placed both medially and laterally. Any remaining meniscus was ca refully removed using electrocautery. Curved osteotome was used to remove any posterior osteophytes. Tibial tray and drop guille were placed and once again confirmed a satisfactory tibial cut. A left size 7 femoral trial was impacted onto the distal femur and had excellent fit. The box for e posterior stabilized implant was prepared using a reamer and box-cut osteotome. A size 6 tibial tr ay trial with a 9-mm insert trial was placed and the knee was taken through a range of motion. The k nee had full extension to 130 degrees of flexion with satisfactory patellofemoral tracking. The nickerson lla was everted. Oscillating saw was used to remove 9 mm of patellar bone and cartilage. The patella was sized to a size 38. Three peg holes were drilled through the size 38 patella. A 38 patella tri al was placed and the knee was taken through a range of motion. There was satisfactory patellofemora l tracking. All trials were carefully removed. The tibia was subluxed anteriorly and sized to a siz e 6. Proximal tibia was prepared using a size 6 keel punch. All bony cut surfaces were copiously irrigated with sterile saline and dried. Final implants were kavitha ented into place starting with the tibia followed by the femur and last the patella. The 9-mm insert trial was placed and the knee was brought out into full extension. Tourniquet was turned down at 45 minutes. Electrocautery was used to obtain meticulous hemostasis. The knee was copiously irrigated with sterile saline. Once the cement fully cured, the insert trial was removed. Any excess cement w as removed from around the capsule and hardware. Final insert chosen was a 9-mm posterior stabilized articular insert size 5/6. This was locked into position on the tibial tray. Stability of the insert was checked and rechecked and noted to be stable. The knee was once again copiously irrigated with sterile saline. The extensor mechanism was closed o marry a medium Hemovac drain using interrupted #1 Vicryl. The rest of the incision was closed in a lay ered fashion using 0 and 2-0 Vicryl. Skin was closed using running 3-0 nylon suture. Sterile Xerofo rm, 4x4s, and Webril were used to cover the incision. Oliver wrap and cold pack were placed over this. The patient's anesthesia was reversed without difficulty. He was taken to the PACU in stable conditi on. Intended weightbearing will be weightbearing as tolerated. Intended DVT prophylaxis will be Coum connor with a Lovenox bridge. [id number]/[facility] #: [id number]
[2018-07-19] MEDS ORDERED: Warfarin TAB(*) 6 MG PO ONE (17:00)
[2018-07-20] MEDS: Acetaminophen TAB* 325 MG PO SCH (03:40)
[2018-07-20 05:47] LABS: Hematocrit 36 % (42-52); Hemoglobin 12.2 g/dl (14.0-18.0); Platelet Count 175 10^3/ul (150-450)
[2018-07-20 05:53] LABS: INR 2.3 (0.77-1.02)
[2018-07-20] MEDS ORDERED: Omeprazole CAP* 20 MG PO SCH (07:30)
[2018-07-20] MEDS: Magnesium Hydroxide LIQ* 30 ML UDC PO SCH (08:32)
[2018-07-20] MEDS: Docusate CAP* 100 MG PO SCH (08:32)
[2018-07-20] MEDS: oxyCODONE TAB* 5 MG TAB PO PRN (08:32)
[2018-07-20] MEDS: Losartan TAB* 25 MG PO SCH (08:32)
[2018-07-20] MEDS: amLODIPine TAB* 5 MG PO SCH (08:32)
--- NOTE | 2018-07-20 08:50 | PN ---
Progress Note - Progress Note Date of Service: 07/20/18 SOAP: Subjective: [Pt. is alert, reports pain is well controlled. Feels ready to go home. States he is doing well with PT. Denies any chest pain or sob. Objective: Vital Signs Temp 98.1 F 07/20/18 03:37 Pulse 107 07/20/18 03:37 Resp 18 07/20/18 08:32 BP 158/91 07/20/18 03:37 Pulse Ox 98 07/20/18 03:37 Intake & Output 07/19/18 07/20/18 07/20/18 18:59 06:59 18:59 Intake Total 1120 700 Output Total 750 Balance 1120 -50 Intake: Oral 1120 700 Output: Urine 750 Other: Estimated Void Large Medium Date of Last Bowel 06/20/18 Movement # Bowel Movements 1 Estimated Stool Amount Medium # Voids 1 1 General: A&Ox3, NAD LLE - Dressing changed, incision is c/d/i without drainage or purulence. +df/pf , calf is soft and non tender. distally nvi. 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
[2018-07-20 10:20] VITALS: BP 143/75
--- NOTE | 2018-07-21 15:40 | DS ---
DISCHARGE SUMMARY: DATE OF ADMISSION: 07/18/18 DATE OF DISCHARGE: 07/20/18 PROVIDER: Dr. Eliza Aggarwal.* (DICTATED BY SUDHEER MYERS) ADMITTING DIAGNOSIS: Left knee osteoarthritis. CONSULTATIONS: PT, OT, and Hospitalist Medicine. HISTORY OF PRESENT ILLNESS: Mr. Locke is a 77-year-old gentleman who has had bilateral knee pain, left greater than right and has become chronic. He has failed conservative treatment with steroid injections, physical therapy, and activity modification and he wanted to undergo a left total knee arthroplasty, which was performed by Dr. Eliza Aggarwal on 07/18/18. HOSPITAL COURSE: The patient was admitted to [facility] on 07/18/18 and underwent a left total knee arthroplasty with no complications. The patient recovered briefly in the postanesthesia care unit and was then transferred to the short-stay surgical unit in stable condition. On postop day #1, the patient's H and H were 12.6 and 38. INR was 1.22 after 6 mg of Coumadin the night before. Dressing was clean, dry, and intact. Left lower extremity was neurovascularly intact. He demonstrated dorsiflexion, plantarflexion, and good strength. Patient was able to get out of bed with physical therapy. Pain was well controlled. On postop day #2, the urinary catheter was discontinued and the patient was able to void without difficulty. Incision was found to be benign with minimal drainage. No erythema or warmth. The patient's H and H were 12.2 and 36. INR was 2.40 after 6 mg of Coumadin the night before. Pain was controlled again. The patient was able to ambulate with the use of a rolling walker and assistance. The patient's pain was well controlled and found to be stable for discharge. Throughout the hospital course , vital signs remained stable and the patient was afebrile. DISCHARGE CONDITION: Good. DISCHARGE MEDICATIONS: 1. Percocet 5/325. 2. Warfarin 2 mg. Home medications: 1. Losartan potassium. 2. Magnesium oxide 400 mg. 3. Amlodipine 2.5. 4. Lomotil. 5. Multivitamins. 6. Aleve 220. 7. Omeprazole 20. 8. Lactic acid. DISCHARGE INSTRUCTIONS: 1. Weightbearing as tolerated. 2. Wound care: Okay to shower after postop day #3. No bathing, swimming, or submerging the wound. Use gentle soap and pat dry. Cover with gauze, Oliver wrap or tape. Call the orthopedic office for increased drainage, redness, increased pain or fever. Go to the ER with shortness of breath or chest pain. 3. Diet: Regular diet, increase fluids and fibers to prevent constipation. Use stool softeners. Call office if no bowel motion within 48 hours. 4. Continue physical therapy and occupational therapy. Exercises as shown. 5. Visiting home nurses to do wound checks and draw blood for INR on Mondays and . 6. Coumadin dosing. Please note that you have been given 2 mg tablets. You will be provided with dosing instructions on Mondays and . If you do not receive the dosing instructions on dosing, please call our office right away. Please starr dosing instructions on the calender they are provided to you. Dosing is 4 mg tonight. Recheck tomorrow. 7. Pain control with Percocet 5/325 mg 1 to 2 tabs every 4 to 6 hours as needed for pain. Maximum 10 tabs per day. Please note that Percocet contains Tylenol, maximum daily dose of Tylenol is 4 g from all sources. 8. Antibiotics required prior to any dental work. 9. Follow up within 10 to 14 days. Call for an appointment. 10. Please call our office with any questions or concerns at [phone]. SUDHEER MYERS [id number]/[facility] #: [id number] MARIO
== END 2018-07-20 12:21 | disposition home health service (06) | DRG 470 ==
LOC: AA 08:17 → SSU 15:07
PROVIDERS: ADMIT Orthopaedic Surgery Adult Reconstructive Orthopaedic Surgery; ATTEND Orthopaedic Surgery Adult Reconstructive Orthopaedic Surgery
PROC: 0SRD0J9 Replacement of Left Knee Joint with Synthetic Substitute, Cemented, Open Approach (ICD-10-PCS; principal; 2018-07-18 09:45)
DX: M17.0 Bilateral primary osteoarthritis of knee (principal); I10 Essential (primary) hypertension; K21.9 Gastro-esophageal reflux disease without esophagitis; K90.0 Celiac disease; M25.762 Osteophyte, left knee; E73.9 Lactose intolerance, unspecified; Z96.612 Presence of left artificial shoulder joint; Z79.1 Long term (current) use of non-steroidal anti-inflammatories (NSAID); Z79.899 Other long term (current) drug therapy; Z88.8 Allergy status to other drugs, medicaments and biological substances; Z88.1 Allergy status to other antibiotic agents; Z91.041 Radiographic dye allergy status; Z82.49 Family history of ischemic heart disease and other diseases of the circulatory system; Z83.3 Family history of diabetes mellitus; Z82.61 Family history of arthritis; Z85.46 Personal history of malignant neoplasm of prostate; Z85.828 Personal history of other malignant neoplasm of skin
CPT/HCPCS: 36415; 80048; 85014; 85018; 85049; 85610; A9270-GY; C1776; G8978-GP-CI; G8978-GP-CJ; G8979-GP-CI; J1100; J1650; J2250; J2270; J2405; J2704; J2795; J3010